=== PATIENT | male | born 1965 | race Caucasian/White ===

== ENCOUNTER 2019-07-23 14:15 | Outpatient (CLI) | payer OTHER, SELFPAY ==
[2019-07-23 14:58] LABS: Blood Urea Nitrogen 14 mg/dL (9-20); Calcium 8.9 mg/dL (8.4-10.2); Carbon Dioxide 28 mmol/L (22-30); Chloride 100 mmol/L (98-107); Estimated Glomerular Filt Rate > 60; Glucose 150 mg/dL (75-110); Potassium 3.8 mmol/L (3.4-5.0); Sodium 136 mmol/L (137-145)
== END 2019-07-23 14:16 | disposition home or self-care (01) ==
LOC: ANHSURGERY 14:27
PROVIDERS: Anesthesiology; Visit Provider Orthopaedic Surgery
DX: Z51.81 Encounter for therapeutic drug level monitoring (principal)
CPT/HCPCS: 36415; 80048

== ENCOUNTER 2022-05-29 11:49 | Outpatient (CLI) | payer BC, SELFPAY ==
--- NOTE | 2022-05-29 | ECG_ITS ---
Measurements Intervals [place] Rate: 82 P: 51 W[place]: 170 QRS: -19 QRSD: 101 T: 9 QT: 363 QTc: 424 Interpretive Statements SINUS RHYTHM VOLTAGE CRITERIA FOR LVH CONSIDER INFERIOR INFARCT, AGE INDETERMINATE ABNORMAL ECG NO PREVIOUS ECG AVAILABLE FOR COMPARISON Electronically Signed On 05-29-2022 13:11:48 PROFILER by Pradeep Haywood D.O.
== END 2022-05-29 11:50 | disposition home or self-care (01) ==
PROVIDERS: Visit Provider Orthopaedic Surgery
DX: Z01.818 Encounter for other preprocedural examination (principal)
CPT/HCPCS: 93005

== ENCOUNTER 2024-11-04 14:29 | Outpatient (CLI) | payer OTHER, SELFPAY ==
--- NOTE | ~2024-11-04 | XR_ITS ---
EXAM/ PROCEDURE: XR lumbar spine 2-3V - 11/04/2024 14:39 CDT HISTORY: 58 years old Male with L lbp COMPARISON: None available TECHNIQUE: Two view(s) FINDINGS/ IMPRESSION: There are no fractures or dislocations.Multilevel degenerative changes are seen. Reviewed, dictated and finalized at location A.
--- NOTE | ~2024-11-04 | XR_ITS ---
HISTORY: L hip pain COMPARISON: 03/11/2024 TECHNIQUE: Frontal view of the pelvis was performed in the standing position FINDINGS: Total right hip prosthetic is identified, with unchanged positioning from previous examination. No periprosthetic fracture is appreciated. Superior lateral joint space narrowing and sclerosis is identified within the left femoral acetabular joint space, consistent with osteoarthritis. A lack of sphericity is identified within the left femoral head, specifically at the anterior/superio r portion of the femoral head/neck junction. No acute fracture or dislocation is appreciated. IMPRESSION: Degenerative disease without acute fracture or dislocation. 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
== END 2024-11-04 14:30 | disposition home or self-care (01) ==
PROVIDERS: Visit Provider Chiropractor
DX: M51.369 Other intervertebral disc degeneration, lumbar region without mention of lumbar back pain or lower extremity pain (principal); M19.09 Primary osteoarthritis, other specified site
CPT/HCPCS: 72100; 72170